=== PATIENT | female | born 1955 | race Two or more races ===

== ENCOUNTER 2023-05-12 05:09 | Observation (INO) | payer MEDICARE ==
[2023-05-12] MEDS ORDERED: SODIUM CHLORIDE 0.9% 1,000 ML IV STA (06:00)
[2023-05-12] MEDS ORDERED: MECLIZINE 12.5 MG TAB PO STA (06:10)
[2023-05-12] MEDS ORDERED: ONDANSETRON 4 MG/2 ML VIAL IVP STA (06:10)
[2023-05-12 06:19] LABS: Basophils % (A) 0 %; Eosinophils # (A) 0.2 k/uL (0-0.7); Eosinophils % (A) 3 %; HCT 36.9 % (34.0-46.0); HGB 12.2 gm/dL (11.4-16.0); Lymphocytes # (A) 2.2 k/uL (1.0-4.8); Lymphocytes % (A) 44 %; MCH 30.9 pg (25.0-35.0); MCHC 32.9 g/dL (31.0-37.0); MCV 93.9 fL (80.0-100.0); Mean Platelet Volume 9.1; Monocytes # (A) 0.2 k/uL (0-1.0); Monocytes % (A) 4 %; Neutrophils # (A) 2.3 k/uL (1.3-7.7); Neutrophils % (A) 46 %; Platelet Count 229 k/uL (150-450); RBC 3.93 m/uL (3.80-5.40); RDW 13.7 % (11.5-15.5); WBC 5.1 k/uL (3.8-10.6)
--- NOTE | 2023-05-12 06:20 | ED ---
Dizziness HPI - General Chief Complaint: Dizziness Stated Complaint: Dizziness, nausea Time Seen by Provider: 05/12/23 06:00 Source: patient, RN notes reviewed Mode of arrival: wheelchair Limitations: no limitations - History of Present Illness Initial Comments: Patient is a 67-year-old -[place] female presenting to the emergency room with complaints of dizziness ongoing for the last 2-3 days with increased intensity over the last 24 hours. She reports that symptoms are worse with position changes and head movement. She reports associated nausea without vomiting, diaphoresis and intermittent right-sided chest pain with her symptoms. She has not taken any medication to treat the symptoms. She states that she has been to check her blood pressure home but her blood pressure machine doesn't currently work. She denies any episodes of syncope, loss of consciousness, headache, shortness of breath, abdominal pain, diarrhea, tinnitus, ear pain, sore throat, changes and chronic fatigue, fevers or chills. She is concerned regarding her symptoms that she is scheduled for a knee replacement surgery within the week and does not want anything interfering with her surgery. She is currently administering intranasal antibacterial cream as a preoperative empiric treatment. She has a past medical history significant for lupus, hypertension, chronic fatigue and osteoarthritis. - Related Data Allergies Allergy/AdvReac Type Severity Reaction Status Date / Time No Known Allergies Allergy Verified 05/12/23 05:13 Review of Systems ROS Statement: Those systems with pertinent positive or pertinent negative responses have been documented in the HPI. ROS Other: All systems not noted in ROS Statement are negative. Past Medical History Past Medical History: Hypertension Additional Past Medical History / Comment(s): Lupus History of Any Multi-Drug Resistant Organisms: None Reported Past Surgical History: Appendectomy, Hysterectomy Past Psychological History: No Psychological Hx Reported Smoking Status: Never smoker Past Alcohol Use History: None Reported Past Drug Use History: None Reported General Exam Limitations: no limitations General appearance: obese Head exam: Present: atraumatic, normocephalic, normal inspection Eye exam: Present: normal appearance, PERRL, EOMI. Absent: scleral icterus, conjunctival injection, nystagmus, periorbital swelling ENT exam: Present: mucous membranes moist, TM's normal bilaterally, normal external ear exam Expanded Mouth exam: Present: normal external inspection Teeth exam: Present: normal inspection Throat exam: normal inspection Neck exam: Present: normal inspection, full ROM. Absent: tenderness Respiratory exam: Present: normal lung sounds bilaterally. Absent: respiratory distress, wheezes, rales, rhonchi, stridor Cardiovascular Exam: Present: regular rate, normal rhythm, normal heart sounds. Absent: systolic murmur, diastolic murmur, rubs, gallop, clicks GI/Abdominal exam: Present: soft, normal bowel sounds. Absent: distended, tend erness, guarding, rebound, rigid Extremities exam: Present: normal inspection. Absent: pedal edema, joint swelling Back exam: Present: normal inspection Neurological exam: Present: alert, oriented X3, CN II-XII intact Psychiatric exam: Present: normal affect, normal mood Skin exam: Present: warm, dry, intact, normal color. Absent: rash Course Vital Signs 05/12/23 05:14 Temperature 98.4 F Pulse Rate 69 Respiratory 18 Rate Blood Pressure 195/107 O2 Sat by Pulse 98 Oximetry Medical Decision Making - Medical Decision Making Was pt. sent in by a medical professional or institution (, PA, SECRETARY TO THE VICE PRESIDENT, urgent care, hospital, or prison...) When possible be specific @ -No Did you speak to anyone other than the patient for history (EMS, parent, family, police, friend...)? What history was obtained from this source @ -No Did you review nursing and triage notes (agree or disagree)? Why? @ -I reviewed and agree with nursing and triage notes Were old charts reviewed (outside hosp., previous admission, EMS record, old EKG, old radiological studies, urgent care reports/EKG's, prison records)? Report findings @ -No old charts were reviewed, no charts/records available for review Differential Diagnosis (chest pain, altered mental status, abdominal pain women, abdominal pain men, vaginal bleeding, weakness, fever, dyspnea, syncope, headache, dizziness, GI bleed, back pain, seizure, CVA, palpatations, mental health, musculoskeletal)? @ -Differential Dizziness: Benign paroxysmal positional Vertigo, Menieres disease, otitis media, acoustic neuroma, vertebrobasilar insufficiency, cerebellar stroke, encephalitis, hypovolemic, arrhythmia, coronary artery syndrome, anemia, this is not meant to be an all-inclusive list EKG interpreted by me (3pts min.). @ -Sinus rhythm, ventricular rate 65 bpm, MD interval 164 ms, QRS duration 90 ms, QT/QTC 387/399 ms, PRT axes 50, -9, 14 X-rays interpreted by me (1pt min.). @ -None done CT interpreted by me (1pt min.). @ -None done U/S interpreted by me (1pt. min.). @ -None done What testing was considered but not performed or refused? (CT, X-rays, U/S, labs)? Why? @ -None What meds were considered but not given or refused? Why? @ -None Did you discuss the management of the patient with other professionals (professionals i.e. DrMarisa, PA, SECRETARY TO THE VICE PRESIDENT, lab, RT, psych nurse, social media coordinator, printing bindery assistant, teacher, donor relations officer, case worker)? Give summary @ -No Was smoking cessation discussed for >3mins.? @ -No Was critical care preformed (if so, how long)? @ -No Were there social determinants of health that impacted care today? How? (Homelessness, low income, unemployed, alcoholism, drug addiction, transportation, low edu. Level, literacy, decrease access to med. care, halfway, rehab)? @ -No Was there de-escalation of care discussed even if they declined (Discuss DNR or withdrawal of care, Hospice)? DNR status @ -No What co-morbidities impacted this encounter? (DM, HTN, Smoking, COPD, CAD, Cancer, CVA, ARF, Chemo, Hep., AIDS, mental health diagnosis, sleep apnea, morbid obesity)? @ -None Was patient admitted / discharged? Hospital course, mention meds given and route, prescriptions, significant lab abnormalities, going to OR and other pertinent info. @ -67-year-old vascular female presents the emergency room with complaints of dizziness worse with head movement and position changes ongoing for last 3 days with increase in intensity and associated symptoms. Will give 1 L IV fluid bolus, Zofran for nausea and 50 mg of oral meclizine for dizziness and monitor response. Will obtain laboratory studies of CBC, CMP, troponin, magnesium, urinalysis, urine drug screen along with 4 plex viral swabbing. Orthostatic laboratory studies revealed severe dizziness despite medication upon standing with hypertension of blood pressure 220s/110s. We'll give IV hydralazine and monitor blood pressure. Due to dizziness the setting of significant hypertension will obtain CT of the brain. Undiagnosed new problem with uncertain prognosis? @ -No Drug Therapy requiring intensive monitoring for toxicity (Heparin, Nitro, Insulin, Cardizem)? @ -No Were any procedures done? @ -No Diagnosis/symptom? @ - Acute, or Chronic, or Acute on Chronic? @ -Acute Uncomplicated (without systemic symptoms) or Complicated (systemic symptoms)? @ - Side effects of treatment? @ -No Exacerbation, Progression, or Severe Exacerbation? @ -No Poses a threat to life or bodily function? How? (Chest pain, [place], [place], pneumonia, PE, COPD, DKA, ARF, appy, cholecystitis, CVA, Diverticulitis, Homicidal, Suicidal, threat to staff... and all critical care pts) @ -No Case discussed with Dr. Barclay - Lab Data Result diagrams: 05/12/23 05:55 05/12/23 05:55 Lab Results 05/12/23 05/12/23 05/12/23 Range/Units 05:55 05:55 05:55 WBC 5.1 (3.8-10.6) k/uL RBC 3.93 (3.80-5.40) m/uL Hgb 12.2 (11.4-16.0) gm/dL Hct 36.9 (34.0-46.0) % MCV 93.9 (80.0-100.0) fL MCH 30.9 (25.0-35.0) pg MCHC 32.9 (31.0-37.0) g/dL RDW 13.7 (11.5-15.5) % Plt Count 229 (150-450) k/uL MPV 9.1 Neutrophils % 46 % Lymphocytes % 44 % Monocytes % 4 % Eosinophils % 3 % Basophils % 0 % Neutrophils # 2.3 (1.3-7.7) k/uL Lymphocytes # 2.2 (1.0-4.8) k/uL Monocytes # 0.2 (0-1.0) k/uL Eosinophils # 0.2 (0-0.7) k/uL Basophils # 0.0 (0-0.2) k/uL Sodium 140 (137-145) mmol/L Potassium 4.0 (3.5-5.1) mmol/L Chloride 104 (98-107) mmol/L Carbon Dioxide 31 H (22-30) mmol/L Anion Gap 5 mmol/L BUN 9 (7-17) mg/dL Creatinine 0.83 (0.52-1.04) mg/dL Est GFR (CKD-EPI)AfAm 85 (>60 ml/min/1.73 sqM) Est GFR (CKD-EPI)NonAf 74 (>60 ml/min/1.73 sqM) Glucose 111 H (74-99) mg/dL Calcium 9.5 (8.4-10.2) mg/dL Total Bilirubin 0.4 (0.2-1.3) mg/dL AST 23 (14-36) U/L ALT 22 (4-34) U/L Alkaline Phosphatase 84 (38-126) U/L Troponin I <0.012 (0.000-0.034) ng/mL Total Protein 7.2 (6.3-8.2) g/dL Albumin 4.0 (3.5-5.0) g/dL Disposition Referrals: Nonstaff,Physician [Primary Care Provider] - 1-2 days
[2023-05-12 06:30] LABS: ALT 22 U/L (4-34); AST 23 U/L (14-36); African American GFR (CKD) 85 (>60 ml/min/1.73 sqM); Alkaline Phosphatase 84 U/L (38-126); Anion Gap 5 mmol/L; Blood Urea Nitrogen 9 mg/dL (7-17); Calcium 9.5 mg/dL (8.4-10.2); Carbon Dioxide 31 mmol/L (22-30); Chloride 104 mmol/L (98-107); Glucose 111 mg/dL (74-99); Non-African American GFR(CKD) 74 (>60 ml/min/1.73 sqM); Sodium 140 mmol/L (137-145); Total Bilirubin 0.4 mg/dL (0.2-1.3); Total Protein 7.2 g/dL (6.3-8.2)
[2023-05-12] MEDS ORDERED: hydrALAZINE HCL 20 MG/ML 1 ML VIAL IVP STA ×2 (06:57→08:54)
--- NOTE | 2023-05-12 07:34 | CT ---
EXAMINATION TYPE: CT brain wo con CT DLP: 1098.4 mGycm, Automated exposure control for dose reduction was used. DATE OF EXAM: 05/12/2023 7:29 AM COMPARISON: None. CLINICAL INDICATION:Female, 67 years old with history of HTN and dizziness, dizziness TECHNIQUE: Brain: Multiple axial CT images of the brain were obtained without IV contrast. Coronal and sagittal reformats reviewed. FINDINGS: Brain: Extra-axial spaces: No abnormal extra-axial fluid collections. Ventricular system: Within normal limits Cerebral parenchyma: No acute intraparenchymal hemorrhage or mass effect. The ferrera-white junction is well differentiated. Cerebellum: Unremarkable. Mass effect: No evidence of midline shift. Intracranial vasculature: unremarkable Soft tissues: Normal. Calvarium/osseous structures: No depressed skull fracture. Benign hyperostosis frontalis noted. Paranasal sinuses and mastoid air cells: Clear Visualized orbits: Orbital contents are intact. IMPRESSION: No acute intracranial process.
[2023-05-12] MEDS ORDERED: KETOROLAC 15 MG/ML 1 ML VIAL IVP STA (09:35)
[2023-05-12] MEDS ORDERED: METOCLOPRAMIDE 5 MG/ML 2 ML VIAL IVP STA (09:42)
[2023-05-12] MEDS ORDERED: NALOXONE 0.4 MG/ML 1 ML VIAL IV PRN (10:10)
[2023-05-12] MEDS ORDERED: HYDROcodone/APAP 5-325MG 1 EACH TAB PO PRN (10:10)
[2023-05-12] MEDS ORDERED: MORPHINE SULFATE 4 MG/ML SYRINGE IV PRN (10:10)
[2023-05-12] MEDS ORDERED: ONDANSETRON 4 MG/2 ML VIAL IVP PRN (10:10)
[2023-05-12] MEDS ORDERED: LOSARTAN 50 MG TAB PO SCH (11:30)
--- NOTE | 2023-05-12 12:01 | P.CRDCN ---
History of Present Illness History of present illness: HISTORY OF PRESENT ILLNESS: This is a 67-year-old female with a past medical history significant for with lupus and hypertension. Patient follows with a clean up helper banquet in [place] at [facility]. We have been asked to see the patient in consultation for hypertension. Patient examined at the bedside. Patient states over the past 3-4 days she has been experiencing dizziness at home. She states it does not feel like the room is spinning. She states it feels like she is going to fall over. She states yesterday she was doing her makeup in the bathroom and had the worst dizziness she has had over the past 3 or 4 days. She said she felt like she was going to pass out. She said she felt so unwell that she said a prayer in the bathroom asking God not to let her fall down and hit her head. She told her about her symptoms and she came to the emergency room for further evaluation. She denies having any shortness of breath. She does report having some right-sided chest pain over the past few days. The pain is nonexertional. She denies any pain at the time of examination. Patient was found to be extremely hypertensive in the emergency room with a max blood pressure of 156/123. She has received IV hydralazine. The patient is prescribed 100 mg of losartan at home which she states that she has been taking every day. She reports a low sodium diet. She also reports lower extremity edema. She states that she has a blood pressure machine at home but has not been checking it because it is broken. She also reports that she is scheduled to have a knee replacement next week at a surgical center out of [facility]. She states th at she had an EKG performed at her clean up helper banquet and was cleared to undergo surgery. She also reports that she had a chemical stress test performed a few months ago as she was having shortness of breath. She states her stress test was normal to her knowledge. She denies having any cardiac catheterizations in the past. She is a nonsmoker. She denies any alcohol use. She does report marijuana use and states that she uses Gummies at night due to her pain from her lupus. * EKG reveals sinus mechanism with no signs of acute ischemia * CT of the brain: Negative for acute process * Laboratory data: WBC 5.1. Hemoglobin 12.2. Platelet count 229. Sodium 140. Potassium 4.0. BUN 9. Creatinine 0.83. Troponin negative 1. * Current home cardiac medications include aspirin 81 mg daily and losartan 100 mg daily REVIEW OF SYSTEMS: At the time of my exam: CONSTITUTIONAL: Denies fever or chills. HEENT: Denies blurred vision, vision changes, or eye pain. Denies hemoptysis CARDIOVASCULAR: Denies chest pain. Denies orthopnea. Denies PND. Denies palpitations RESPIRATORY: Denies shortness of breath. GASTROINTESTINAL: Denies abdominal pain. Denies nausea or vomiting. HEMATOLOGIC: Denies bleeding disorders. GENITOURINARY: Denies any blood in urine. SKIN: Denies pruitis. Denies rash. PHYSICAL EXAM: VITAL SIGNS: Reviewed. GENERAL: Well-developed in no acute distress. HEENT: Head is normocephalic. Pupils are equal, round. Sclerae anicteric. Mucous membranes of the mouth are moist. Neck supple. No JVD or thyromegaly LUNGS: Respirations even and unlabored. Lungs essentially clear to auscultation bilaterally. HEART: Regular rate and rhythm. S1 and S2 heard. Systolic murmur noted. ABDOMEN: Soft. Nondistended. Nontender. EXTREMITIES: Normal range of motion. No clubbing or cyanosis. Peripheral pulses intact. Trace edema of bilateral ankles. NEUROLOGIC: Awake and alert. Oriented x 3. ASSESSMENT: Dizziness Hypertensive urgency Chest pain, atypical, may be secondary to uncontrolled blood pressure History of lupus Osteoarthritis, scheduled for knee replacement next week Marijuana use PLAN: Obtain 2D echo to assess cardiac structure and function Continue home dose of losartan 100 mg daily Add Norvasc 5 mg daily. May need to increase to 10mg pending patient response. Add Hydrochlorothiazide 25 mg daily Continue to monitor blood pressure Continue telemetry monitoring Obtain records from patient's primary clean up helper banquet Further recommendations pending patient's course Nurse practitioner note has been reviewed by physician. Signing provider agrees with the documented findings, assessment, and plan of care. Past Medical History Past Medical History: Hypertension Additional Past Medical History / Comment(s): Lupus History of Any Multi-Drug Resistant Organisms: None Reported Past Surgical History: Appendectomy, Hysterectomy Past Psychological History: No Psychological Hx Reported Smoking Status: Never smoker Past Alcohol Use History: None Reported Past Drug Use History: None Reported Medications and Allergies Home Medications Medication Instructions Recorded Confirmed Type Aspirin EC [Ecotrin Low Dose] 81 mg PO DAILY 05/12/23 05/12/23 History Escitalopram [Lexapro] 20 mg PO DAILY 05/12/23 05/12/23 History Losartan [Cozaar] 100 mg PO DAILY 05/12/23 05/12/23 History Mupirocin 2% Oint [Bactroban 2% 1 applic TOPICAL BID 05/12/23 05/12/23 History Oint] Pregabalin [Lyrica] 200 mg PO TID 05/12/23 05/12/23 History oxyCODONE-APAP 5-325MG [Percocet 1 tab PO DIRECTED PRN 05/12/23 05/12/23 History 5-325 mg] tiZANidine [Zanaflex] 4 mg PO TID 05/12/23 05/12/23 History traMADol HCL 50 mg PO DIRECTED PRN 05/12/23 05/12/23 History valACYclovir HCL [Valtrex] 500 mg PO DAILY 05/12/23 05/12/23 History Allergies Allergy/AdvReac Type Severity Reaction Status Date / Time No Known Allergies Allergy Verified 05/12/23 11:13 Physical Exam Vitals: Vital Signs Temp Pulse Resp BP Pulse Ox 05/12/23 09:50 84 18 175/80 99 05/12/23 09:16 74 18 167/86 100 05/12/23 08:32 71 18 194/105 99 05/12/23 07:03 76 256/123 05/12/23 07:02 65 18 238/113 05/12/23 05:14 98.4 F 69 18 195/107 98 Intake and Output 05/11/23 05/12/23 05/12/23 22:59 06:59 14:59 Other: Weight 108.862 kg Results 05/12/23 05:55 05/12/23 05:55 Cardiac Enzymes 05/12/23 05/12/23 Range/Units 05:55 05:55 AST 23 (14-36) U/L Troponin I <0.012 (0.000-0.034) ng/mL CBC 05/12/23 Range/Units 05:55 WBC 5.1 (3.8-10.6) k/uL RBC 3.93 (3.80-5.40) m/uL Hgb 12.2 (11.4-16.0) gm/dL Hct 36.9 (34.0-46.0) % Plt Count 229 (150-450) k/uL Comprehensive Metabolic Panel 05/12/23 Range/Units 05:55 Sodium 140 (137-145) mmol/L Potassium 4.0 (3.5-5.1) mmol/L Chloride 104 (98-107) mmol/L Carbon Dioxide 31 H (22-30) mmol/L BUN 9 (7-17) mg/dL Creatinine 0.83 (0.52-1.04) mg/dL Glucose 111 H (74-99) mg/dL Calcium 9.5 (8.4-10.2) mg/dL AST 23 (14-36) U/L ALT 22 (4-34) U/L Alkaline Phosphatase 84 (38-126) U/L Total Protein 7.2 (6.3-8.2) g/dL Albumin 4.0 (3.5-5.0) g/dL Current Medications Generic Name Dose Route Start Last Admin Trade Name Freq PRN Reason Stop Dose Admin Hydrocodone Bitart/Acetaminophen 1 each 05/12/23 10:10 Hydrocodone/Apap 5-325mg 1 Each Tab PO Q4HR PRN Moderate Pain (Scale 4 to 6) Ketorolac Tromethamine 15 mg 05/12/23 10:10 Ketorolac 15 Mg/Ml 1 Ml Vial IVP 05/15/23 10:11 Q6HR PRN Moderate Pain (Scale 4 to 6) Morphine Sulfate 4 mg 05/12/23 10:10 Morphine Sulfate 4 Mg/Ml Syringe IV Q4HR PRN Severe Pain (Scale 7 to 10) Naloxone HCl 0.2 mg 05/12/23 10:10 Naloxone 0.4 Mg/Ml 1 Ml Vial IV Q2M PRN Opioid Reversal Ondansetron HCl 4 mg 05/12/23 10:10 Ondansetron 4 Mg/2 Ml Vial IVP Q8HR PRN Nausea And Vomiting Intake and Output 05/11/23 05/12/23 05/12/23 22:59 06:59 14:59 Other: Weight 108.862 kg 05/12/23 05:55 05/12/23 05:55
[2023-05-12] MEDS ORDERED: traMADol 50 MG TAB PO PRN (12:16)
[2023-05-12] MEDS ORDERED: oxyCODONE-APAP 5-325MG 1 EACH TAB PO PRN (12:16)
--- NOTE | 2023-05-12 12:25 | P.HPIM ---
History of Present Illness 67-year-old female came in with complaints of dizziness, patient believes it may be mostly vertigo rather lightheadedness. Patient also found to have highly elevated blood pressure because of which patient was started on hemorrhoidal thiazide patient takes losartan at home and she didn't miss any of her medications. Patient appears to have labyrinthitis with some fullness in the ears and recent the upper respiratory infection. Patient doesn't have any similar signs Romberg sign with eyes open is negative and patient doesn't have any ataxia. Romberg mildly positive with eyes open. Patient doesn't any fever chills CT of the head did not show any significant abnormality. REVIEW OF SYSTEMS: CONSTITUTIONAL: No fever, no malaise, no fatigue. HEENT: No recent visual problems or hearing problems. Denied any sore throat. CARDIOVASCULAR: No chest pain, orthopnea, PND, no palpitations, no syncope. PULMONARY: No shortness of breath, no cough, no hemoptysis. GASTROINTESTINAL: No diarrhea, no nausea, no vomiting, no abdominal pain. NEUROLOGICAL: No headaches, no weakness, no numbness. HEMATOLOGICAL: Denies any bleeding or petechiae. GENITOURINARY: Denies any burning micturition, frequency, or urgency. MUSCULOSKELETAL/RHEUMATOLOGICAL: Denies any joint pain, swelling, or any muscle pain. ENDOCRINE: Denies any polyuria or polydipsia. The rest of the 14-point review of systems is negative. PHYSICAL EXAMINATION: GENERAL: The patient is alert and oriented x3, not in any acute distress. Well developed, well nourished. HEENT: Pupils are round and equally reacting to light. EOMI. No scleral icterus. No conjunctival pallor. Normocephalic, atraumatic. No pharyngeal erythema. No thyromegaly. CARDIOVASCULAR: S1 and S2 present. No murmurs, rubs, or gallops. PULMONARY: Chest is clear to auscultation, no wheezing or crackles. ABDOMEN: Soft, nontender, nondistended, normoactive bowel sounds. No palpable organomegaly. MUSCULOSKELETAL: No joint swelling or deformity. EXTREMITIES: No cyanosis, clubbing, or pedal edema. NEUROLOGICAL: Gross neurological examination did not reveal any focal deficits. As mentioned above in the HPI SKIN: No rashes. Assessment and plan -Possible vertigo secondary to labyrinthitis was given a dose of steroid and meclizine if patient improves patient will be discharged tomorrow patient appears to have peripheral vertigo will not require MRI patient doesn't have any similar signs clinically patient will follow up with neurology as an outpatient. -Hypertension with possible lightheadedness: Hypertensive urgency, patient was started on diuretic which is appropriate will continue to monitor blood pressure -History of for lupus -Osteoarthritis -Obesity -Depression DVT prophylaxis: Ambulation Past Medical History Past Medical History: Hypertension Additional Past Medical History / Comment(s): Lupus History of Any Multi-Drug Resistant Organisms: None Reported Past Surgical History: Appendectomy, Hysterectomy Past Psychological History: No Psychological Hx Reported Smoking Status: Never smoker Past Alcohol Use History: None Reported Past Drug Use History: None Reported Medications and Allergies Home Medications Medication Instructions Recorded Confirmed Type Aspirin EC [Ecotrin Low Dose] 81 mg PO DAILY 05/12/23 05/12/23 History Escitalopram [Lexapro] 20 mg PO DAILY 05/12/23 05/12/23 History Losartan [Cozaar] 100 mg PO DAILY 05/12/23 05/12/23 History Mupirocin 2% Oint [Bactroban 2% 1 applic TOPICAL BID 05/12/23 05/12/23 History Oint] Pregabalin [Lyrica] 200 mg PO TID 05/12/23 05/12/23 History oxyCODONE-APAP 5-325MG [Percocet 1 tab PO DIRECTED PRN 05/12/23 05/12/23 History 5-325 mg] tiZANidine [Zanaflex] 4 mg PO TID 05/12/23 05/12/23 History traMADol HCL 50 mg PO DIRECTED PRN 05/12/23 05/12/23 History valACYclovir HCL [Valtrex] 500 mg PO DAILY 05/12/23 05/12/23 History Allergies Allergy/AdvReac Type Severity Reaction Status Date / Time No Known Allergies Allergy Verified 05/12/23 11:13 Physical Exam Vitals: Vital Signs Temp Pulse Resp BP Pulse Ox 05/12/23 09:50 84 18 175/80 99 05/12/23 09:16 74 18 167/86 100 05/12/23 08:32 71 18 194/105 99 05/12/23 07:03 76 256/123 05/12/23 07:02 65 18 238/113 05/12/23 05:14 98.4 F 69 18 195/107 98 Intake and Output 05/11/23 05/12/23 05/12/23 22:59 06:59 14:59 Other: Weight 108.862 kg Results CBC & Chem 7: 05/12/23 05:55 05/12/23 05:55 Labs: Abnormal Lab Results - Last 24 Hours (Table) 05/12/23 Range/Units 05:55 Carbon Dioxide 31 H (22-30) mmol/L Glucose 111 H (74-99) mg/dL
[2023-05-12] MEDS ORDERED: MECLIZINE 25 MG TAB PO PRN (12:26)
[2023-05-12 14:48] LABS: Amorphous Sediment,Urine Rare /hpf; Appearance,Urine Clear (Clear); Bacteria,Urine Rare /hpf; Bilirubin,Urine Negative (Negative); Blood,Urine Negative (Negative); Color,Urine Light Yellow; Glucose,Urine (UA) Negative (Negative); Ketones,Urine Negative (Negative); Leukocyte Esterase,Urine Moderate (Negative); Nitrite,Urine Negative (Negative); PH, Urine 7.5 (5.0-8.0); Protein,Urine Negative (Negative); RBC,Urine <1 /hpf (0-5); Specific Gravity,Urine 1.007 (1.001-1.035); Squamous Epithelial Cell,Urine 6 /hpf (0-4); Urobilinogen,Urine <2.0 mg/dL (<2.0); WBC,Urine 2 /hpf (0-5)
[2023-05-12 14:56] LABS: Amphetamine Screen,Urine Not Detected (NotDetected); Barbiturate Screen,Urine Not Detected (NotDetected); Benzodiazepines Screen,Urine Not Detected (NotDetected); Cocaine Screen,Urine Not Detected (NotDetected); Methadone Screen, Urine Not Detected (NotDetected); Opiate Screen,Urine Detected (NotDetected); Oxycodone Screen, Urine Not Detected (NotDetected); Phencyclidine Screen,Urine Not Detected (NotDetected); Tricyclic Antidepressant,Urine Not Detected (NotDetected); Urn Cannabinoid Scrn Detected (NotDetected)
[2023-05-12] MEDS: ASPIRIN 81 MG PO SCH (15:07)
[2023-05-12] MEDS: PREGABALIN 100 MG CAP PO SCH ×2 (15:08→20:27)
[2023-05-12] MEDS: amLODIPine 5 MG TAB PO SCH (15:08)
[2023-05-12] MEDS: predniSONE 20 MG TAB PO SCH ×2 (15:08→20:27)
[2023-05-12] MEDS: FAMOTIDINE 20 MG TAB PO SCH ×2 (15:08→20:27)
[2023-05-12] MEDS: tiZANidine 4 MG TAB PO SCH ×2 (16:22→20:27)
[2023-05-12] MEDS: ESCITALOPRAM 20 MG TAB PO SCH (16:22)
[2023-05-12] MEDS: hydroCHLOROthiazide 25 MG TAB PO SCH (16:22)
[2023-05-12] MEDS: KETOROLAC 15 MG/ML 1 ML VIAL IVP PRN ×2 (16:31→23:30)
[2023-05-12] MEDS: MUPIROCIN 2% OINT 22 GM TUBE TOPICAL SCH (20:31)
[2023-05-13 01:53] VITALS: PULSE 71; TEMP 97.9
--- NOTE | 2023-05-13 07:21 | CA ---
Transthoracic Echo Report Name: Rut Li Age: 67 Gender: F : 1955 Exam Date: 05/12/2023 13:01 Exam Location: [facility] Ht (in): 63 Wt (lb): 240 Ordering Physician: Zohra Jones Attending/Referring Phys: [id number], Karen Horticultural Therapist Procedure CPT: Indications: LV function, chest pain Cardiac Hx: Technical Quality: Fair Contrast 1: Total Dose (mL): Contrast 2: Total Dose (mL): MEASUREMENTS (Male / Female) Normal Values 2D ECHO LV Diastolic Diameter PLAX 3.9 cm 4.2 - 5.9 / 3.9 - 5.3 cm LV Systolic Diameter PLAX 2.9 cm IVS Diastolic Thickness 1.2 cm 0.6 - 1.0 / 0.6 - 0.9 cm LVPW Diastolic Thickness 1.2 cm 0.6 - 1.0 / 0.6 - 0.9 cm LV Relative Wall Thickness 0.6 RV Internal Dim ED PLAX 3.1 cm LVOT Diameter 2.0 cm Aortic Root Diameter 2.6 cm LA Systolic Diameter LX 3.2 cm 3.0 - 4.0 / 2.7 - 3.8 cm LV Diastolic Volume MOD BP 58.5 cm??? 67 - 155 / 56 - 104 cm??? LV Systolic Volume MOD BP 16.3 cm??? 22 - 58 / 19 - 49 cm??? LV Ejection Fraction MOD BP 72.1 % >= 55 % LV Cardiac Index MOD BP 1250.2 cm???/min???m??? LV Diastolic Volume MOD 4C 64.2 cm??? LV Systolic Volume MOD 4C 17.4 cm??? LV Ejection Fraction MOD 4C 72.9 % LV Cardiac Index MOD 4C 1388.2 cm???/min???m??? LV Diastolic Length 4C 7.3 cm LV Systolic Length 4C 5.7 cm LV Diastolic Volume MOD 2C 52.5 cm??? LV Systolic Volume MOD 2C 14.9 cm??? LV Ejection Fraction MOD 2C 71.7 % LV Cardiac Index MOD 2C 1115.5 cm???/min???m??? LV Diastolic Length 2C 7.1 cm LV Systolic Length 2C 6.0 cm LA Volume 47.5 cm??? 18 - 58 / 22 - 52 cm??? Ascending Aorta Diameter 2.6 cm DOPPLER AV Peak Velocity 136.6 cm/s AV Peak Gradient 7.5 mmHg LVOT Peak Velocity 82.7 cm/s LVOT Peak Gradient 2.7 mmHg AV Area Cont Eq pk 1.9 cm??? MV Peak Velocity 121.5 cm/s MV Peak Gradient 5.9 mmHg MV Mean Velocity 58.1 cm/s MV Mean Gradient 1.8 mmHg MV Velocity Time Integral 33.4 cm Mitral E Point Velocity 86.0 cm/s Mitral A Point Velocity 92.9 cm/s Mitral E to A Ratio 0.9 MV Deceleration Time 165.6 ms TR Peak Velocity 179.9 cm/s TR Peak Gradient 12.9 mmHg Right Ventricular Systolic Press 17.9 mmHg PV Peak Velocity 99.5 cm/s PV Peak Gradient 4.0 mmHg FINDINGS Left Ventricle Mildly increased septal wall thickness. Mildly increased posterior wall thickness. Left ventricular ejection fraction is estimated at 55-60 %.normal left ventricular wall motion. Left ventricular cavity size normal. Right Ventricle Normal right ventricular size. RVSP= 18mmhg. Right Atrium Normal right atrial size. Left Atrium Normal left atrial size. Mitral Valve Structurally normal mitral valve.trace to mild mitral regurgitation. Aortic Valve Trileaflet aortic valve. No aortic regurgitation. No aortic stenosis. Tricuspid Valve Structurally normal tricuspid valve. Trace TR. Pulmonic Valve Pulmonic valve not well visualized. No pulmonic regurgitation. Pericardium Normal pericardium. Aorta Normal size aortic root and proximal ascending aorta. CONCLUSIONS 1. Normal left ventricle size and systolic function 2. Trace to mild mitral regurgitation Previewed by: Dr. Frances Villasenor MD (Electronically Signed) Final Date: 13 May 2023 07:20
[2023-05-13 08:16] VITALS: BP 159/65; RESP 16
[2023-05-13] MEDS: amLODIPine 5 MG TAB PO SCH (08:20)
[2023-05-13] MEDS: FAMOTIDINE 20 MG TAB PO SCH (08:21)
[2023-05-13] MEDS: PREGABALIN 100 MG CAP PO SCH (08:21)
[2023-05-13] MEDS: tiZANidine 4 MG TAB PO SCH (08:21)
[2023-05-13] MEDS: hydroCHLOROthiazide 25 MG TAB PO SCH (08:21)
[2023-05-13] MEDS: ESCITALOPRAM 20 MG TAB PO SCH (08:21)
[2023-05-13] MEDS: ASPIRIN 81 MG PO SCH (08:22)
[2023-05-13] MEDS: MUPIROCIN 2% OINT 22 GM TUBE TOPICAL SCH (08:22)
[2023-05-13] MEDS: predniSONE 20 MG TAB PO SCH (08:22)
[2023-05-13] MEDS: KETOROLAC 15 MG/ML 1 ML VIAL IVP PRN (08:29)
[2023-05-13] MEDS ORDERED: valACYclovir HCL 500 MG TAB PO SCH (09:00)
[2023-05-13] MEDS ORDERED: LOSARTAN 50 MG TAB PO SCH (09:00)
--- NOTE | 2023-05-13 10:28 | P.PN ---
Subjective HISTORY OF PRESENT ILLNESS: This is a 67-year-old female with a past medical history significant for with lupus and hypertension. Patient follows with a nuclear auxiliary operator in [place] at [facility]. We have been asked to see the patient in consultation for hypertension. Patient examined at the bedside. Patient states over the past 3-4 days she has been experiencing dizziness at home. She states it does not feel like the room is spinning. She states it feels like she is going to fall over. She states yesterday she was doing her makeup in the bathroom and had the worst dizziness she has had over the past 3 or 4 days. She said she felt like she was going to pass out. She said she felt so unwell that she said a prayer in the bathroom asking God not to let her fall down and hit her head. She told her about her symptoms and she came to the emergency room for further evaluation. She denies having any shortness of breath. She does report having some right-sided chest pain over the past few days. The pain is nonexertional. She denies any pain at the time of examination. Patient was found to be extremely hypertensive in the emergency room with a max blood pressure of 156/123. She has received IV hydralazine. The patient is prescribed 100 mg of losartan at home which she states that she has been taking every day. She reports a low sodium diet. She also reports lower extremity edema. She states that she has a blood pressure machine at home but has not been checking it because it is broken. She also reports that she is scheduled to have a knee replacement next week at a surgical center out of [facility]. She states that she had an EKG performed at her nuclear auxiliary operator and was cleared to undergo surgery. She also reports that she had a chemical stress test performed a few months ago as she was having shortness of breath. She states her stress test was normal to her knowledge. She denies having any cardiac catheterizations in the past. She is a nonsmoker. She denies any alcohol use. She does report marijuana use and states that she uses Gummies at night due to her pain from her lupus. * EKG reveals sinus mechanism with no signs of acute ischemia * CT of the brain: Negative for acute process * Laboratory data: WBC 5.1. Hemoglobin 12.2. Platelet count 229. Sodium 140. Potassium 4.0. BUN 9. Creatinine 0.83. Troponin negative 1. * Current home cardiac medications include aspirin 81 mg daily and losartan 100 mg daily 05/13/2023 Patient examined this morning at the bedside. She denies chest pain or pressure. Denies SOB. She reports improvement in her dizziness. Echocardiogram completed revealing normal left ventricular size and systolic function with trace to mild mitral regurgitation. Blood pressures are significantly improved with a systolic between [id number]. PHYSICAL EXAM: VITAL SIGNS: Reviewed. GENERAL: Well-developed in no acute distress. HEENT: Head is normocephalic. Pupils are equal, round. Sclerae anicteric. Mucous membranes of the mouth are moist. Neck supple. No JVD or thyromegaly LUNGS: Respirations even and unlabored. Lungs essentially clear to auscultation bilaterally. HEART: Regular rate and rhythm. S1 and S2 heard. Systolic murmur noted. ABDOMEN: Soft. Nondistended. Nontender. EXTREMITIES: Normal range of motion. No clubbing or cyanosis. Peripheral pulses intact. No lower extremity edema noted. NEUROLOGIC: Awake and alert. Oriented x 3. ASSESSMENT: Dizziness Hypertensive urgency Chest pain, atypical, may be secondary to uncontrolled blood pressure History of lupus Osteoarthritis, scheduled for knee replacement next week Marijuana use PLAN: Continue current cardiac medications Patient is stable for discharge home today from a cardiac standpoint Patient instructed to follow-up post discharge with her primary nuclear auxiliary operator Nurse practitioner note has been reviewed by physician. Signing provider agrees with the documented findings, assessment, and plan of care. Objective - Vital Signs Vital signs: Vital Signs Temp 97.9 F 05/13/23 07:00 Pulse 71 05/13/23 08:00 Resp 16 05/13/23 08:00 BP 159/65 05/13/23 07:00 Pulse Ox 96 05/13/23 08:47 FiO2 Intake & Output 05/12/23 05/13/23 05/13/23 18:59 06:59 18:59 Weight 108.862 kg Other: # Voids 1 - Labs CBC & Chem 7: 05/12/23 05:55 05/12/23 05:55 Labs: Abnormal Lab Results - Last 24 Hours (Table) 05/12/23 05/12/23 Range/Units 13:00 13:00 Ur Leukocyte Esterase Moderate H (Negative) Ur Squamous Epith Cells 6 H (0-4) /hpf Amorphous Sediment Rare H (None) /hpf Urine Bacteria Rare H (None) /hpf Urine Opiates Screen Detected H (NotDetected) U Marijuana (THC) Screen Detected H (NotDetected)
--- NOTE | 2023-05-14 16:32 | P.DS ---
Providers Date of admission: 05/12/23 09:51 Attending physician: Christiano Stroud MD Consults: 05/12/23 10:10 Consult Physician Stat Consulting Provider: Law Aguilar Consult Reason/Comments: HTN Do you want consulting provider notified?: Yes Primary care physician: Physician Nonstaff Hospital Course: Final Diagnosis Labyrinthitis and vertigo with recent upper respiratory infection Hypertension likely attributed to lightheadedness Hypertensive urgency on admission History of lupus Osteoarthritis Obesity Depression GI prophylaxis DVT prophylaxis Full Code Plan Patient is stable for discharge home she can continue Antivert as needed for any dizziness or lightheadedness due to vertigo. She was started on a prednisone taper as well. Cardiology has evaluated the patient and recommending to contin ue on hydrochlorothiazide 20 mg daily as well as amlodipine 5 mg daily on discharge. Patient to follow-up with her normal integration architect and her known PCP. Hospital course This is a pleasant 67-year-old Moralez medical history of hypertension, arthritis, lupus. Patient presents to the hospital with complaints of lightheadedness and dizziness and follows it to be vertigo. She also had hypertensive urgency on admission systolic blood pressures up in the 200s. Patient was taking her medications appropriately she said that there have been some recent med changes lately as she was orthostatic on an outpatient basis. She was also reporting an recent upper respiratory infection and sinus congestion. The dizziness and lightheadedness can be attributed to vertigo which patient does state that she has a history of vertigo in the past and she'll be given steroids for this. She did have improvement and recommending a course of oral steroids and discharge. Cardiology evaluated the patient r ecommending medication changes and blood pressure has improved and symptoms have resolved. Her pressure is now 159/65 she is afebrile she heart rate is 71 and she is on room air 100% oxygen saturation. She is denying chest pain denies shortness of breath or lungs are clear S1-S2 is auscultated with regular rate and rhythm. A negative Romberg sign. Alert 3 no focal neurological deficits noted. Her blood cell panel is normal her electrolyes are essentially normal and glucose was found to be 111 troponin is negative urinalysis shows moderate leukocyte esterase and rare bacteria urine drug toxicology is positive for opiates and marijuana. Influenza RSV and culture negative. Cleared for DC home with above mentioned recommendations. Please see medication reconciliation for list of current medication. Thank you for allowing us to participate in the care of this patient. The impression and plan of care has been dictated by Zora Moralez, Nurse Practitioner as directed. Dr. Tony MD I have performed a history and physical examination and medical decision making of this patient, discussed the same with the dictator, and agree with the dictators assessment and plan as written, documented as a scribe. Based on total visit time, I have performed more than 50% of this visit. Patient Condition at Discharge: Stable Plan - Discharge Summary Discharge Rx Participant: Yes New Discharge Prescriptions: New Meclizine [Antivert] 25 mg PO QID PRN tab PRN Reason: Vertigo methylPREDNISolone [Medrol Dose Pack] 0 mg PO DIRECTED #1 packet hydroCHLOROthiazide [Hydrodiuril] 25 mg PO DAILY #30 tab amLODIPine [Norvasc] 5 mg PO DAILY #30 tab Famotidine [Pepcid] 20 mg PO DAILY #30 tab Continue Aspirin EC [Ecotrin Low Dose] 81 mg PO DAILY tiZANidine [Zanaflex] 4 mg PO TID Pregabalin [Lyrica] 200 mg PO TID Mupirocin 2% Oint [Bactroban 2% Oint] 1 applic TOPICAL BID Escitalopram [Lexapro] 20 mg PO DAILY valACYclovir HCL [Valtrex] 500 mg PO DAILY Losartan [Cozaar] 100 mg PO DAILY traMADol HCL 50 mg PO DIRECTED PRN PRN Reason: Pain oxyCODONE-APAP 5-325MG [Percocet 5-325 mg] 1 tab PO DIRECTED PRN PRN Reason: Pain Discharge Medication List Aspirin EC [Ecotrin Low Dose] 81 mg PO DAILY 05/12/23 [History] Escitalopram [Lexapro] 20 mg PO DAILY 05/12/23 [History] Losartan [Cozaar] 100 mg PO DAILY 05/12/23 [History] Mupirocin 2% Oint [Bactroban 2% Oint] 1 applic TOPICAL BID 05/12/23 [History] Pregabalin [Lyrica] 200 mg PO TID 05/12/23 [History] oxyCODONE-APAP 5-325MG [Percocet 5-325 mg] 1 tab PO DIRECTED PRN 05/12/23 [History] tiZANidine [Zanaflex] 4 mg PO TID 05/12/23 [History] traMADol HCL 50 mg PO DIRECTED PRN 05/12/23 [History] valACYclovir HCL [Valtrex] 500 mg PO DAILY 05/12/23 [History] Famotidine [Pepcid] 20 mg PO DAILY #30 tab 05/13/23 [Rx] Meclizine [Antivert] 25 mg PO QID PRN tab 05/13/23 [Rx] amLODIPine [Norvasc] 5 mg PO DAILY #30 tab 05/13/23 [Rx] hydroCHLOROthiazide [Hydrodiuril] 25 mg PO DAILY #30 tab 05/13/23 [Rx] methylPREDNISolone [Medrol Dose Pack] 0 mg PO DIRECTED #1 packet 05/13/23 [Rx] Follow up Appointment(s)/Referral(s): Nonstaff,Physician [Primary Care Provider] - 1-2 days Patient Instructions/Handouts: Vertigo (DC), Hypertension (DC) Activity/Diet/Wound Care/Special Instructions: Continue on antivert as needed can buy over the counter for the dizziness Complete oral steroid taper Cardiology has added hydrochlorothiazide 25 mg daily and amlodipine 5 mg daily for blood pressure control Recommend to check your blood pressure daily same time every day after relaxing beforehand for about 20 minutes. Keep log for follow up with your PCP and integration architect. Make an appointment with your usual PCP in 1 to 2 days Recommend to see your own integration architect in 1 week. Discharge Disposition: HOME SELF-CARE
== END 2023-05-13 11:48 | disposition home or self-care (01) ==
LOC: SUPCPDRO 05:09 → EC 05:09 → 6NMEDSUR 09:51
PROVIDERS: ADMIT Internal Medicine; ATTEND Internal Medicine
DX: R42 Dizziness and giddiness (principal); H83.09 Labyrinthitis, unspecified ear; I16.0 Hypertensive urgency; I10 Essential (primary) hypertension; R53.82 Chronic fatigue, unspecified; M32.9 Systemic lupus erythematosus, unspecified; E66.9 Obesity, unspecified; M17.9 Osteoarthritis of knee, unspecified; F32.A Depression, unspecified; F12.90 Cannabis use, unspecified, uncomplicated; Z20.822 Contact with and (suspected) exposure to COVID-19; Z79.82 Long term (current) use of aspirin; Z79.899 Other long term (current) drug therapy
CPT/HCPCS: 96375 ×2; 96376 ×2; 96361; 96374; 99285; 36415; 94760; 93005; 93306; 80053; 83735; 84484; 85025; 81001; 80306; 87636; 70450; G0378 ×2; J2270; J0360; J2765; J2405; J1885 ×2; J7512 ×2

== ENCOUNTER 2023-05-15 07:30 | Emergency (ER) | payer MEDICARE ==
[2023-05-15 07:42] VITALS: TEMP 98.3
[2023-05-15 08:09] VITALS: BP 169/62; PULSE 62; RESP 17
--- NOTE | 2023-05-15 08:09 | ED ---
General Adult HPI - General Chief complaint: Recheck/Abnormal Lab/Rx Stated complaint: hypertension Time Seen by Provider: 05/15/23 07:46 Source: patient Mode of arrival: wheelchair Limitations: no limitations - History of Present Illness Initial comments: Dictation was produced using [employer] dictation software. please excuse any grammatical, word or spelling errors. Chief Complaint: 67-year-old female presents with hypertension History of Present Illness: C6 to 7-year-old female presents emergency Department with hypertension. Patient wakes up early in the morning around 4 AM. at the bedside checks her blood pressure. She just admitted to the hospital for hypertension recently. She was started on blood pressure me dications. Blood pressure this morning upon waking was over 200 systolic. She was given her blood pressure medications. At no point today did patient complain of any headache, chest pain, shortness of breath or strokelike symptoms. Patient was given her usual medications. The time she arrived to the hospital they rechecked her blood pressure and her measurements were significantly improved. The ROS documented in this emergency department record has been reviewed and confirmed by me. Those systems with pertinent positive or negative responses have been documented in the HPI. All other systems are other negative and/or noncontributory. - Related Data Home Medications Medication Instructions Recorded Confirmed Aspirin EC [Ecotrin Low Dose] 81 mg PO DAILY 05/12/23 05/12/23 Escitalopram [Lexapro] 20 mg PO DAILY 05/12/23 05/12/23 Losartan [Cozaar] 100 mg PO DAILY 05/12/23 05/12/23 Mupirocin 2% Oint [Bactroban 2% 1 applic TOPICAL BID 05/12/23 05/12/23 Oint] Pregabalin [Lyrica] 200 mg PO TID 05/12/23 05/12/23 oxyCODONE-APAP 5-325MG [Percocet 1 tab PO DIRECTED PRN 05/12/23 05/12/23 5-325 mg] tiZANidine [Zanaflex] 4 mg PO TID 05/12/23 05/12/23 traMADol HCL 50 mg PO DIRECTED PRN 05/12/23 05/12/23 valACYclovir HCL [Valtrex] 500 mg PO DAILY 05/12/23 05/12/23 Previous Rx's Medication Instructions Recorded Famotidine [Pepcid] 20 mg PO DAILY #30 tab 05/13/23 Meclizine [Antivert] 25 mg PO QID PRN tab 05/13/23 amLODIPine [Norvasc] 5 mg PO DAILY #30 tab 05/13/23 hydroCHLOROthiazide [Hydrodiuril] 25 mg PO DAILY #30 tab 05/13/23 methylPREDNISolone [Medrol Dose 0 mg PO DIRECTED #1 packet 05/13/23 Pack] Allergies Allergy/AdvReac Type Severity Reaction Status Date / Time No Known Allergies Allergy Verified 05/15/23 07:42 Review of Systems ROS Statement: Those systems with pertinent positive or pertinent negative responses have been documented in the HPI. ROS Other: All systems not noted in ROS Statement are negative. Past Medical History Past Medical History: Hypertension Additional Past Medical History / Comment(s): Lupus History of Any Multi-Drug Resistant Organisms: None Reported Past Surgical History: Appendectomy, Hysterectomy Past Psychological History: No Psychological Hx Reported Smoking Status: Never smoker Past Alcohol Use History: None Reported Past Drug Use History: None Reported General Exam - General Exam Comments Initial Comments: PHYSICAL EXAM: General Impression: Alert and oriented x3, not in acute distress HEENT: Normocephalic atraumatic, extra-ocular movements intact, pupils equal and reactive to light bilaterally, mucous membranes moist. Cardiovascular: Heart regular rate and rhythm Chest: Able to complete full sentences, no retractions, no tachypnea Abdomen: abdomen soft, non-tender, non-distended, no organomegaly Musculoskeletal: Pulses present and equal in all extremities, no peripheral edema Motor: no focal deficits noted Neurological: CN II-XII grossly intact, no focal motor or sensory deficits noted Skin: Intact with no visualized rashes Psych: Normal affect and mood Limitations: no limitations Course Vital Signs 05/15/23 05/15/23 07:38 08:07 Temperature 98.3 F Pulse Rate 57 L 62 Respiratory 20 17 Rate Blood Pressure 174/88 169/62 O2 Sat by Pulse 98 97 Oximetry Medical Decision Making - Medical Decision Making Was pt. sent in by a medical professional or institution (, PA, REGULATOR TESTER, urgent care, hospital, or senior living...) When possible be specific @ -No Did you speak to anyone other than the patient for history (EMS, parent, family, police, friend...)? What history was obtained from this source @ - at the bedside measured patient's blood pressure to be high Did you review nursing and triage notes (agree or disagree)? Why? @ -I reviewed and agree with nursing and triage notes Were old charts reviewed (outside hosp., previous admission, EMS record, old EKG, old radiological studies, urgent care reports/EKG's, senior living records)? Report findings @ -No old charts were reviewed Differential Diagnosis (chest pain, altered mental status, abdominal pain women, abdominal pain men, vaginal bleeding, musculoskeletal, weakness, fever, dyspnea, syncope, headache, dizziness, GI bleed, back pain, seizure, CVA, palpatations, mental health)? @ -not applicable EKG interpreted by me (3pts min.). @ -None done X-rays interpreted by me (1pt min.). @ -None done CT interpreted by me (1pt min.). @ -None done U/S interpreted by me (1pt. min.). @ -None done What testing was considered but not performed or refused? (CT, X-rays, U/S, labs)? Why? @ -None What meds were considered but not given or refused? Why? @ -None] Did you discuss the management of the patient with other professionals (professionals i.e. , PA, REGULATOR TESTER, lab, RT, psych nurse, social and human services assistant, resource technician, teacher, natural resource officer, case hardener)? Give summary @ -[No] Was smoking cessation discussed for >3mins.? @ -[No] Was critical care preformed (if so, how long)? @ -[No] Were there social determinants of health that impacted care today? How? (Homelessness, low income, unemployed, alcoholism, drug addiction, transportation, low edu. Level, literacy, decrease access to med. care, retirement, rehab)? @ -[No] Was there de-escalation of care discussed even if they declined (Discuss DNR or withdrawal of care, Hospice)? DNR status @ -[No] What co-morbidities impacted this encounter? (DM, HTN, Smoking, COPD, CAD, Cancer, CVA, ARF, Chemo, Hep., AIDS, mental health diagnosis, sleep apnea, morbid obesity)? @ -[None] Was patient admitted / discharged? Hospital course, mention meds given and route, prescriptions, significant lab abnormalities, going to OR and other pertinent info. @ -[id number] female clinical presentation consistent with asymptomatic hypertension.Vital signs around arrival was measured at 174/80, rest of vital signs within acceptable limits. Physical examination is benign. Patient has no symptoms. Patient discharged advised follow-up with primary care doctor Undiagnosed new problem with uncertain prognosis? @ -[No] Drug Therapy requiring intensive monitoring for toxicity (Heparin, Nitro, Insulin, Cardizem)? @ -[No] Were any procedures done? @ -[No] Diagnosis/symptom? Acute, or Chronic, or Acute on Chronic? Uncomplicated (without systemic symptoms) or Complicated (systemic symptoms)? @ -1. Asymptomatic hypertension Side effects of treatment? @ -[No] Exacerbation, Progression, or Severe Exacerbation? @ -[No] Poses a threat to life or bodily function? How? (Chest pain, USA, MD, pneumonia, PE, COPD, DKA, ARF, appy, cholecystitis, CVA, Diverticulitis, Homicidal, Suicidal, threat to staff... and all critical care pts) @ -[No] Disposition Clinical Impression: Hypertension Disposition: HOME SELF-CARE Condition: Good Instructions (If sedation given, give patient instructions): Hypertension (ED) Is patient prescribed a controlled substance at d/c from ED?: No Referrals: Nonstaff,Physician [Primary Care Provider] - 1-2 days Time of Disposition: 08:09
== END 2023-05-15 08:28 | disposition home or self-care (01) ==
LOC: EC 07:30
DX: I10 Essential (primary) hypertension (principal); Z79.82 Long term (current) use of aspirin; Z79.899 Other long term (current) drug therapy
CPT/HCPCS: 99283